=== PATIENT | female | born 1985 | race Two or more races ===

== ENCOUNTER 2024-04-11 17:37 | Emergency (ER) | payer BC ==
[~2024-04-11] VITALS: Ht 162.6 cm; Wt 108.9 kg
[2024-04-11] MEDS ORDERED: DIOVAN40 MG (17:46)
[2024-04-11] MEDS ORDERED: CAMBIA50 MG (17:47)
[2024-04-11] MEDS ORDERED: PROPRANOLOL HCL60 M1 (17:47)
== END 2024-04-11 21:09 | disposition home or self-care (01) ==
LOC: ER 17:38
DX: R53.81 Other malaise (principal); T19.2XXS Foreign body in vulva and vagina, sequela; W44.8XXA Other foreign body entering into or through a natural orifice, initial encounter